=== PATIENT | male | born 1950 | race Caucasian/White ===

== ENCOUNTER 2019-01-25 18:21 | Emergency (ER) | payer OTHER, SELFPAY ==
[2019-01-25 18:22] VITALS: BP 174/98; PULSE 83; RESP 16; TEMP 36.8; O2SAT 96; BMI 45.3
[2019-01-25] MEDS: Ondansetron 4 MG/2 ML Vial IV (18:52)
[2019-01-25] MEDS: Morphine 4 MG/ML Syringe IV ×2 (18:52→20:58)
[2019-01-25] MEDS: Diphth,Pertuss(Acell),Tet Vac 0.5 ML Vial IM (18:52)
--- NOTE | 2019-01-25 18:56 | ED.VIS.GEN ---
History of Present Illness Chief Complaint: Upper Extremity Injury Informant: Patient Onset: Today Context: Sudden Onset Timing: Continuous Current Severity: Moderate Maximum Severity: Moderate Narrative: The patient is a 68-year-old male with only medical history for hypertension presents to the emergency department with right elbow injury. The patient was in his normal state of health. He states that he was standing on a bucket working on his tractor. He tried to step up onto the tractor, lost his balance, and fell. He landed directly on his right elbow. He did not strike his head. He denies loss of consciousness. He states since then, he had a difficult time moving his arm. He is unsure of his last tetanus. Prior similar symptoms: No Recent Illness/Hospitalization: No Past Medical History - Allergies and Home Meds Allergies/Adverse Reactions: Allergies No Known Allergies Allergy (Verified 01/25/19 18:31) Primary Care Physician: Jovany Negro DO [Primary Care Provider] - Prior records reviewed: Yes Past Medical History: - - Hypertension Surgical History: noncontributory Smoking Status: Never smoker Review of Systems General: Denies: Chills, Fever, Sweats Eyes: Denies: Visual changes - bilaterally, Diplopia ENT: Denies: Rhinorrhea, Sore throat Cardiovascular: Denies: Chest pain, Palpitations Respiratory: Denies: Dyspnea, Cough, Dyspnea on exertion Gastrointestinal: Denies: Abdominal pain, Nausea, Vomiting, Diarrhea, Melena, Hematochezia Genitourinary: Denies: Dysuria, Hematuria, Frequency Musculoskeletal: Denies: Back pain, Extremity Pain Skin: Denies: Rash, Wounds Neurological: Denies: Headache, Weakness, Numbness Physical Exam Vital Signs/Narrative: Vital Signs Temp Pulse Resp BP Pulse Ox 01/25/19 18:22 98.3 F 83 16 174/98 H 96 Inital Vital Signs reviewed: Yes General: Well nourished, Well developed, No Acute Distress Head: Normocephalic, Atraumatic Eyes: Perrl, EOMI ENT: Moist mucous membranes, No rhinorrhea Neck: Supple, Nontender Cardiovascular: Regular rate, Regular rhythm, No murmurs Respiratory: No distress, CTA bilaterally, Chest nontender Abdomen: Soft, Nontender, Nondistended, Normal bowel sounds Back: Nontender, Normal Inspection Extremities: Tenderness - Tenderness over the right elbow with deformity. There is laceration at the joint line. Diminished range of motion. Normal pulses. Skin: Normal color, No rash Neurological: Alert, Oriented x3, Cranial nerves II-XII grossly intact, Normal Strength, Normal Sensation Psychological: Normal affect, Normal Mood Diagnostic/Tx/Re-eval Clinical Impression(s) from Imaging Studies Elbow X-Ray 01/25/19 19:05 IMPRESSION: Acute intra-articular extensively comminuted fracture of the distal humerus with substantial medial displacement and mild posterior displacement and angulation. Grossly negative for fracture of the ulna or radius. Elbow remains located. Electronically Signed: Reena Hess MD at 19:38 EST , Service support , - Medical Decision Making The patient presents with obvious injury to his right elbow. He is neurovascularly intact distally. IV was established. The patient was given analgesics. X-rays were obtained. This does confirm a rather significant supracondylar fracture with intra-articular extension that is markedly comminuted. I did discuss the patient with orthopedics here who recommended transfer given the reconstructive process. Patient was given Ancef. His wound was covered with wet sterile gauze. A splint was placed just for comfort as the patient is going to be seen immediately by orthopedics. He was discussed with the [facility] transfer line and accepted by Dr. Blakely. Impression 1. Open comminuted right intra-articular supracondylar fracture ED Disposition - Plan for ED Patient: Referrals: Jovany Negro DO [Primary Care Provider] -
[2019-01-25 19:03] LABS: Absolute Lymphocyte Count 1.24 X10^3/uL (0.83-4.51); Absolute Neutrophil Count 9.4 X10^3/uL (2.0-7.7); Basophil# 0.03 X10^3/uL; Basophil% 0.3 % (0-1); Eosinophil# 0.18 X10^3/uL; Eosinophils% 1.6 % (0-5); Hematocrit 41.3 % (40-54); Hemoglobin 13.6 g/dL (13.0-16.5); Lymphocyte # 1.24 X10^3/ul (4.0); Lymphocyte % 10.8 % (19-41); Mean Corp Hgb Conc 32.9 g/dL (32-36); Mean Corpuscular Hgb 29.4 pg (27.0-32.0); Mean Corpuscular Volume 89.4 fL (80-94); Mean Platelet Vol. 9.5 fl (6.2-12.0); Monocyte# 0.55 X10^3/uL; Monocyte% 4.8 % (0-10); NRBC Flagged by Analyzer 0 % (0-5); Neutrophil # 9.42 X10^3/uL (2.7-7.7); Neutrophil % 81.9 % (47-70); Platelet Count 215 K/mm3 (150-450); RBC Distribution Width CV 13.5 % (11.6-14.6); RBC Distribution Width SD 43.9 fl (35.1-43.9); Red Blood Count 4.62 M/mm3 (4.6-6.2); White Blood Count 11.5 K/mm3 (4.4-11.0)
--- NOTE | 2019-01-25 19:05 | RAD_ITS ---
STUDY: X-RAY - RIGHT ELBOW REASON FOR EXAM: Male, 68 years old. Elbow pain after falling. TECHNIQUE: 2 view(s) of the elbow. COMPARISON: None. FINDINGS: Acute comminuted fracture of the distal humerus extending from the distal diaphysis to the elbow joint space. The fracture is extensively comminuted dividing the medial and lateral distal humerus. Substantial medial displacement and mild posterior displacement and angulation. The elbow remains located. Negative for fracture of the radial head. Negative for a definitive fracture deformity of the ulna. Fracture related soft tissue swelling. RAD/Elbow 2 Views IMPRESSION: Acute intra-articular extensively comminuted fracture of the distal humerus with substantial medial displacement and mild posterior displacement and angulation. Grossly negative for fracture of the ulna or radius. Elbow remains located. Electronically Signed: Reena Hess MD at 19:38 EST , Service support ,
[2019-01-25] MEDS: 0.9% Normal Saline 1,000 ML 150 ML IV (19:15)
[2019-01-25 19:41] LABS: Anion Gap 7 (5-15); BUN 15 mg/dL (7-18); BUN/Creat Ratio 16.3 RATIO (10-20); Calcium,Total 8.5 mg/dL (8.5-10.1); Chloride 108 mmol/L (98-107); Creatinine, Serum 0.92 mg/dL (0.70-1.30); EST Glomerular Filtration Rate 87 mL/min (>60); Est Glom Filt Rate - Afr Amer 106 mL/min (>60); Estimated Creatinine Clearance 73.84 ml/min; Glucose 126 mg/dL (74-106); Potassium 3.8 mmol/L (3.5-5.1); Sodium Level 140 mmol/L (136-145)
[2019-01-25] MEDS: Cefazolin 1 GM/50 ML BAG IV (19:46)
[2019-01-25 21:07] VITALS: BP 190/95; PULSE 81; RESP 18; TEMP 36.2; O2SAT 95
== END 2019-01-25 21:08 | disposition short-term general hospital (02) ==
PROVIDERS: Emergency Provider Emergency Medicine; Family Provider Family Medicine; PCP Family Medicine
DX: S42.421A Displaced comminuted supracondylar fracture without intercondylar fracture of right humerus, initial encounter for closed fracture (principal); W17.89XA Other fall from one level to another, initial encounter; Y93.9 Activity, unspecified; Y92.9 Unspecified place or not applicable; I10 Essential (primary) hypertension; Z79.899 Other long term (current) drug therapy
CPT/HCPCS: 29125; 73070; 80048; 85025; 90715; 96361; 96365; 96374; 96375; 96376; 99285; J7030; A4216; J2405; J3490